=== PATIENT | female | born 1995 | race African-American/Black ===

== ENCOUNTER 2023-02-17 12:04 | Day surgery (SDC) | payer BC, OTHER ==
[2023-02-14 14:50] VITALS: BMI 36.6
[2023-02-17] MEDS ORDERED: PROPOFOL 60 ML ONE (13:59)
[2023-02-17 14:45] VITALS: RESP 18; TEMP 97
[2023-02-17 14:49] VITALS: BP 118/73; PULSE 85
== END 2023-02-17 15:18 | disposition home or self-care (01) ==
LOC: FASU-ENDO 12:04
PROVIDERS: ATTEND Internal Medicine Gastroenterology
PROC: 0DBN8ZX Excision of Sigmoid Colon, Via Natural or Artificial Opening Endoscopic, Diagnostic (ICD-10-PCS; principal; 2023-02-17 14:07)
DX: K63.5 Polyp of colon (principal); K64.1 Second degree hemorrhoids; K64.8 Other hemorrhoids
CPT/HCPCS: 81025; 88305-TC